=== PATIENT | female | born 1955 | race African-American/Black ===

== ENCOUNTER 2017-08-18 20:19 | Emergency (ER) | payer OTHER ==
--- NOTE | 2017-08-18 21:03 | ER Document Report ---
ED General - General Chief Complaint: Fall Stated Complaint: FALL/FACIAL AND LEFT ELBOW PAIN Time Seen by Provider: 08/18/17 20:53 Mode of Arrival: Ambulatory Information source: Patient Notes: 62-year-old female with a history of hypertension presents with left eye swelling, left sided facial pain. Patient states that 1 day prior to arrival she had a trip and fall outside landing face first into the left on the concrete. Patient does not recall the events but her daughter states that she did lose consciousness. Patient did not come in last night because her mother recently passed and she was preparing for the today. She denies any headache, visual changes, bleeding from the nose, ear ringing. She denies any nausea, vomiting, weakness, slurred speech, blood thinning medications. TRAVEL OUTSIDE OF THE [place] IN LAST 30 DAYS: No - HPI Onset: Yesterday Quality of pain: Throbbing Associated symptoms: None Exacerbated by: Denies Relieved by: Denies Similar symptoms previously: No Recently seen / treated by doctor: No - Related Data Allergies/Adverse Reactions: No Known Allergies Allergy (Unverified 08/18/17 20:29) Past Medical History - General Information source: Patient - Social History Smoking Status: Former Smoker Chew tobacco use (# tins/day): No Frequency of alcohol use: Occasional Drug Abuse: None Lives with: Spouse/Significant other Family History: Reviewed & Not Pertinent Patient has suicidal ideation: No Patient has homicidal ideation: No - Past Medical History Cardiac Medical History: Reports: Hx Hypertension Renal/ Medical History: Denies: Hx Peritoneal Dialysis Review of Systems - Review of Systems Notes: She denies any headache, visual changes, bleeding from the nose, ear ringing. She denies any nausea, vomiting, weakness, slurred speech, blood thinning medications, chest pain, shortness of breath, abdominal pain, neck pain, back pain, difficulty with ambulation. Physical Exam - Vital signs Vitals: Temp Pulse Resp BP Pulse Ox 98.6 F 85 18 140/88 H 96 08/18/17 20:29 08/18/17 20:29 08/18/17 20:29 08/18/17 20:29 08/18/17 20:29 Interpretation: Normal, Hypertensive. No: Febrile - Notes Notes: PHYSICAL EXAMINATION: GENERAL: Well-appearing, well-nourished and in no acute distress. GCS 15 HEAD: Abrasion to the left druze. EYES: Pupils equal round and reactive to light, extraocular movements intact, sclera anicteric, conjunctiva are normal. No evidence of globe rupture, entrapment. large periorbital ecchymosis without crepitus. Patient is able to open her eye. ENT: Nares patent, oropharynx clear without exudates. Moist mucous membranes. No hemanotympanum . No blood in nares. No dental fracture. Midface stable NECK: Normal range of motion, supple without lymphadenopathy. Trachea midline. no midline tenderness LUNGS: Breath sounds clear to auscultation bilaterally and equal. No wheezes rales or rhonchi. HEART: Regular rate and rhythm without murmurs. Pulses intact all throughout. ABDOMEN: Soft, nontender, nondistended abdomen. No guarding, no rebound. No masses appreciated. Musculoskeletal: Normal range of motion, no pitting or edema. No cyanosis. Hip non tender, stable. Ecchymosis over the left elbow, full range of motion, no obvious deformity, no olecranon tenderness. NEUROLOGICAL: Cranial nerves grossly intact. Normal speech, normal gait. Normal sensory, motor, and reflex exams. PSYCH: Normal mood, normal affect. SKIN: Warm, No active bleeding U/S fast exam notes no obvious free fluid but this is a nondiagnostic evaluation Course - Re-evaluation Re-evalutation: Facial Bones CT 08/18/17 20:58 IMPRESSION: 1. Soft tissue swelling over the left orbit. Globes intact. No fracture. Head CT 08/18/17 20:58 IMPRESSION: No acute intracranial abnormality. EVIDENCE OF ACUTE STROKE: NO. 08/18/17 21:04 62-year-old female with a history of hypertension presents with left eye swelling, left sided facial pain. Patient states that 1 day prior to arrival she had a trip and fall outside landing face first into the left on the concrete. Patient does not recall the events but her daughter states that she did lose consciousness. He denies physical abuse. She states she feels safe at home. Patient did not come in last night because her 's mother recently passed and she was preparing for the today. The patient is alert and oriented upon arrival. Exam is significant for a left periorbital ecchymosis, left forehead abrasion, ecchymosis over the left elbow. There is no no evidence of globe rupture, or entrapment. CT of the head and face were obtained and showed no acute abnormality but does show soft tissue swelling over the left orbit with intact globes and no associated fracture. Tetanus was updated. Patient provided the opportunity to ask questions, and express concerns. Discharge instructions discussed. Patient is agreeable with discharge home. Return indications explained and discussed with the patient who displays understanding. Patient encouraged to return to the emergency department immediately with any concerns. 08/18/17 21:30 08/18/17 21:51 - Vital Signs Vital signs: Temp Pulse Resp BP Pulse Ox 97.8 F 68 18 149/83 H 97 08/18/17 21:35 08/18/17 21:35 08/18/17 21:35 08/18/17 21:35 08/18/17 21:35 - Diagnostic Test Radiology reviewed: Image reviewed, Reports reviewed Discharge - Discharge Clinical Impression: Head injury without fracture of skull Qualifiers: Encounter type: initial encounter Qualified Code(s): S09.90XA - Unspecified injury of head, initial encounter Periorbital ecchymosis of left eye Qualifiers: Encounter type: initial encounter Qualified Code(s): S00.12XA - Contusion of left eyelid and periocular area, initial encounter Facial abrasion Qualifiers: Encounter type: initial encounter Qualified Code(s): S00.81XA - Abrasion of other part of head, initial encounter Concussion Qualifiers: Encounter type: initial encounter Loss of consciousness presence/duration: with LOC of 30 min or less Qualified Code(s): S06.0X1A - Concussion with loss of consciousness of 30 minutes or less, initial encounter Condition: Good Disposition: HOME, SELF-CARE Instructions: Concussion ([facility]), Contusion ([facility]), Head Injury Precautions ([facility]) , Post-Concussion Syndrome ([facility]) Additional Instructions: Follow up with your physician tomorrow for further care or return to the ED IMMEDIATELY if symptoms worsen or new concerns occur. If you cannot afford to follow up with your primary care physician a list of low cost clinics have been provided at the end of your discharge papers as well. Forms: Elevated Blood Pressure
--- NOTE | 2017-08-18 21:17 | RADIOLOGY REPORT (SQ) ---
EXAM DESCRIPTION: CT HEAD WITHOUT COMPLETED DATE/TIME: 08/18/2017 9:09 pm REASON FOR STUDY: fall COMPARISON: None. TECHNIQUE: Axial images acquired through the brain without intravenous contrast. Images reviewed wi th bone, brain and subdural windows. Additional sagittal and coronal reconstructions were generated. Images stored on PACS. All CT scanners at this facility use dose modulation, iterative reconstruction, and/or weight based d osing when appropriate to reduce radiation dose to as low as reasonably achievable (ALARA). [facility]: Dose Right [facility]: CareDose [facility]: Dose Right [facility]: Teradose 4D [facility]: [employer] RADIATION DOSE: CT Rad equipment meets quality standard of care and radiation dose reduction techniq ues were employed. CTDIvol: 53.2 mGy. DLP: 991 mGy-cm. mGy. LIMITATIONS: None. FINDINGS: VENTRICLES: Normal size and contour. CEREBRUM: No masses. No hemorrhage. No midline shift. No evidence for acute infarction. Normal gra y/white matter differentiation. No areas of low density in the white matter. CEREBELLUM: No masses. No hemorrhage. No alteration of density. No evidence for acute infarction. EXTRAAXIAL SPACES: No fluid collections. No masses. ORBITS AND GLOBE: Please see face CT separately dictated. CALVARIUM: No fracture. PARANASAL SINUSES: No fluid or mucosal thickening. SOFT TISSUES: Please see face CT separately dictated. OTHER: No other significant finding. IMPRESSION: No acute intracranial abnormality. EVIDENCE OF ACUTE STROKE: NO. COMMENT: Quality ID # [id number]: Final reports with documentation of one or more dose reduction techniques (e.g., Automated exposure control, adjustment of the mA and/or kV according to patient size, use of iterative reconstruction technique) TECHNICAL DOCUMENTATION: JOB ID: [id number] [employer]- All Rights Reserved Reading location - IP/workstation name: [email or web address]
--- NOTE | 2017-08-18 21:19 | RADIOLOGY REPORT (SQ) ---
EXAM DESCRIPTION: CT FACIAL AREA WITHOUT COMPLETED DATE/TIME: 08/18/2017 9:09 pm REASON FOR STUDY: fall COMPARISON: None. TECHNIQUE: Noncontrasted images through the facial bones and orbits windowed for bone and soft tissu e. Additional coronal and sagittal reconstructed images reviewed. All images stored on PACS. All CT scanners at this facility use dose modulation, iterative reconstruction, and/or weight based d osing when appropriate to reduce radiation dose to as low as reasonably achievable (ALARA). [facility]: Dose Right [facility]: CareDose [facility]: Dose Right [facility]: Teradose 4D [facility]: [employer] RADIATION DOSE: CT Rad equipment meets quality standard of care and radiation dose reduction techniq ues were employed. CTDIvol: 30.4 mGy. DLP: 492 mGy-cm. mGy. LIMITATIONS: None. FINDINGS: FACIAL BONES: No fracture or bone lesion. ORBITS: Intact. No fracture. Symmetric intact globes and retroorbital soft tissues. PARANASAL SINUSES: No fluid levels. Bilateral maxillary sinus polypoid mucosal thickening. No nasal polyps. Maxillary sinus outlets are patent. SOFT TISSUES: Pronounced left periorbital soft tissue swelling. No foreign body. INFERIOR BRAIN: Limited view. No acute findings. OTHER: No other significant finding. IMPRESSION: 1. Soft tissue swelling over the left orbit. Globes intact. No fracture. TECHNICAL DOCUMENTATION: JOB ID: [id number] Quality ID # [id number]: Final reports with documentation of one or more dose reduction techniques (e.g., Au tomated exposure control, adjustment of the mA and/or kV according to patient size, use of iterative reconstruction technique) 2010 [employer]- All Rights Reserved Reading location - IP/workstation name: [email or web address]
[2017-08-18] MEDS ORDERED: DIPH/PERTUSS(ACELL)/TETANUS VAC/PF 0.5 ML SYR (>=10YO) IM ONE (21:27)
[2017-08-18 21:36] VITALS: BP 149/83
== END 2017-08-18 21:49 | disposition home or self-care (01) ==
LOC: ER 20:19
DX: S00.12XA Contusion of left eyelid and periocular area, initial encounter (principal); S09.90XA Unspecified injury of head, initial encounter; M25.522 Pain in left elbow; W01.0XXA Fall on same level from slipping, tripping and stumbling without subsequent striking against object, initial encounter; I10 Essential (primary) hypertension
CPT/HCPCS: 70450; 70486; 99283